=== PATIENT | female | born 1975 | race African-American/Black ===

== ENCOUNTER 2018-04-22 06:16 | Emergency (ER) | payer MEDICARE, MEDICAID ==
[~2018-04-22] VITALS: Ht 175.3 cm; Wt 56.7 kg
[2018-04-22] MEDS ORDERED: HYDROXYCHLOROQ200 M1 (06:29)
[2018-04-22] MEDS ORDERED: PREDNISONE 5 MG5 M1 (06:29)
[2018-04-22] MEDS ORDERED: LOPRESSOR25 (06:30)
[2018-04-22 06:44] LABS: ABSOLUTE LYMPHOCYTES 0.5 thou/uL (0.8-5.3); ABSOLUTE MONOCYTES 0.3 thou/uL (0.0-1.2); ABSOLUTE NEUTROPHILS 2.2 thou/uL (1.6-8.1); BASOPHILS 1.1 %; EOSINOPHILS 0.2 %; HEMATOCRIT 33.7 % (37.0-47.0); HEMOGLOBIN 11.2 gm/dL (12.0-15.0); MCH 31.8 pg (26.0-34.0); MCHC 33.1 g/dL (28.0-37.0); MONOCYTES 9.1 %; MPV 6.7 fl. (7.2-11.1); NUCLEATED RBCS 0 /100WBC; PLATELET COUNT* 185 thou/uL (150-400); POLYS 71.6 %; RBC 3.51 mil/uL (4.20-5.00); RDW-CV 14.8 % (10.5-14.5)
[2018-04-22 06:50] LABS: ANION GAP 11 mmol/L (7-16); BUN 30 mg/dL (7-18); CALCIUM 7.9 mg/dL (8.5-10.1); CHLORIDE 101 mmol/L (98-107); CO2 27 mmol/L (21-32); CREATININE 8.8 mg/dL (0.6-1.3); GLUCOSE 74 mg/dL (70-99); POTASSIUM 3.7 mmol/L (3.5-5.1); SODIUM 139 mmol/L (136-145)
[2018-04-22 06:52] LABS: APTT 30.4 Seconds (25.0-31.3); INR 1.1; PROTIME 11.4 Seconds (9.20-11.50)
[2018-04-22 07:09] LABS: ALKALINE PHOSPHATASE 86 U/L (46-116); CK-MB MASS 5.2 ng/mL (<0.5-3.6); LIPASE 222 U/L (73-393); MAGNESIUM 1.7 mg/dL (1.8-2.4); NT-PRO BRAIN NAT PEPTIDE 8276 pg/mL (<300); SGOT 21 U/L (15-37); SGPT 22 U/L (30-65); TOTAL BILIRUBIN 0.8 mg/dL (<0.1-1.0); TOTAL PROTEIN 7.2 g/dL (6.4-8.2); TROPONIN-I LEVEL <0.06 ng/mL (<0.06)
[2018-04-22 09:35] LABS: CK-MB MASS 4.2 ng/mL (<0.5-3.6); TROPONIN-I LEVEL <0.06 ng/mL (<0.06)
[2018-04-22 11:00] VITALS: BP 146/100
--- NOTE | 2018-04-22 13:01 | EKG ---
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: SONNY : 1975 Requested By: Tyler Drake Order Number: [id number] MD: Castillo Ledesma Measurements Intervals [place] Rate: 83 P: -14 DE: 137 QRS: -9 QRSD: 80 T: 32 QT: 377 QTc: 443 Interpretive Statements Sinus rhythm Left ventricular hypertrophy Baseline wander in lead(s) V4 No previous ECG available for comparison Electronically Signed On 04-22-2018 13:01:26 CDT by Castillo Ledesma [email or web address] <ELECTRONICALLY SIGNED> By: Castillo Ledesma MD, [facility] 04/22/18 1301 7 Castillo Ledesma MD, FACC /EPI
== END 2018-04-22 11:00 | disposition home or self-care (01) ==
LOC: M.ERS 06:16
PROVIDERS: Family Medicine; Personal Emergency Response Attendant
DX: R07.89 Other chest pain (principal); N18.6 End stage renal disease; M32.9 Systemic lupus erythematosus, unspecified; Z99.2 Dependence on renal dialysis